=== PATIENT | male | born 1940 | race Caucasian/White ===

== ENCOUNTER → 2018-05-11 | Outpatient (CLI) | payer MEDICARE | END | disposition home or self-care (01) | LOC: RAH 13:13 | PROVIDERS: ATTEND Internal Medicine Critical Care Medicine | DX: R05 Cough (principal) | CPT/HCPCS: 71046 ==

== ENCOUNTER → 2018-05-18 | Outpatient (CLI) | payer MEDICARE | END | disposition home or self-care (01) | LOC: RAH 11:33 | PROVIDERS: ATTEND Internal Medicine Critical Care Medicine | DX: N18.3 Chronic kidney disease, stage 3 (moderate) (principal) | CPT/HCPCS: 76770 ==

== ENCOUNTER → 2018-07-05 | Outpatient (CLI) | payer MEDICARE | END | disposition home or self-care (01) | LOC: RAH 11:13 | PROVIDERS: ATTEND Internal Medicine Nephrology | DX: N18.3 Chronic kidney disease, stage 3 (moderate) (principal) | CPT/HCPCS: 76770 ==

== ENCOUNTER 2019-01-18 13:46 | Emergency (ER) | payer MEDICARE ==
[2019-01-18 14:35] LABS: BASOPHILS % (AUTO) 0.7 % (0.0-5.0); EOSINOPHILS % (AUTO) 0.3 % (0.0-8.0); LYMPHOCYTES % (AUTO) 19.6 % (21.0-51.0); MEAN CORPUSCULAR HGB CONC 34.8 g/dL (32.0-36.0); MEAN CORPUSCULAR VOLUME 92.2 fL (79-99); MONOCYTES % (AUTO) 3.9 % (3.0-13.0); NEUTROPHILS % (AUTO) 75.5 % (40.0-77.0); PLATELET COUNT (AUTO) 177 K/uL (130-400); RED BLOOD CELL COUNT(AUTO) 3.58 MIL/uL (4.50-6.20); RED CELL DISTRIBUTION WIDTH 13.3 % (11.0-15.5); WHITE BLOOD COUNT (AUTO) 8.9 K/uL (4.8-10.8)
[2019-01-18 14:44] LABS: CREATININE 1.5 mg/dL (0.5-1.5); POTASSIUM 3.2 mmol/L (3.5-5.1)
[2019-01-18 14:48] LABS: ALBUMIN 3.2 g/dL (3.5-5.0); BILIRUBIN,TOTAL 0.8 mg/dL (0.2-1.0); INR 1.11 (0.85-1.15); PARTIAL THROMBOPLASTIN TIME 25.4 SEC (26.3-35.5); PROTHROMBIN TIME 11.6 SEC (9.6-11.6); TOTAL PROTEIN, SERUM 6.3 g/dL (6.0-8.3)
== END 2019-01-18 15:32 | disposition home or self-care (01) ==
LOC: EDH 13:46
DX: K62.5 Hemorrhage of anus and rectum (principal); Z87.891 Personal history of nicotine dependence
CPT/HCPCS: 36415; 80053; 85025; 85610; 85730

== ENCOUNTER 2022-07-08 08:36 | Day surgery (SDC) | payer MEDICARE ==
[2022-07-01 13:33] LABS: EOSINOPHILS % (AUTO) 2.1 % (0.0-8.0); LYMPHOCYTES % (AUTO) 22.6 % (21.0-51.0); MEAN CORPUSCULAR HEMOGLOBIN 29.2 pg (27.0-33.0); MEAN CORPUSCULAR HGB CONC 31.8 g/dL (32.0-36.0); MEAN CORPUSCULAR VOLUME 91.9 fL (79-99); MONOCYTES % (AUTO) 6.8 % (3.0-13.0); NEUTROPHILS % (AUTO) 67.4 % (40.0-77.0); PLATELET COUNT (AUTO) 175 K/uL (130-400); RED CELL DISTRIBUTION WIDTH 13.5 % (11.0-15.5); WHITE BLOOD COUNT (AUTO) 7.1 K/uL (4.8-10.8)
[2022-07-01 13:47] LABS: ALBUMIN 3.3 g/dL (3.5-5.0); BILIRUBIN,DIRECT 0.1 mg/dL (0.0-0.3); CREATININE 1.6 mg/dL (0.5-1.5); POTASSIUM 3.6 mmol/L (3.5-5.1); TOTAL PROTEIN, SERUM 6.8 g/dL (6.0-8.3)
[2022-07-01 14:25] VITALS: BP 144/63
[~2022-07-08] VITALS: Ht 170.2 cm; Wt 58.2 kg
[2022-07-08] VITALS (15 sets, daily range): BP systolic 105–147; BP diastolic 55–78
[~2022-07-08 08:36] MED LIST: FINA5TAB41 PO; LISI20TA24 PO; PRIM50TA23 PO; TAMS-1 PO; vitamin b12 IM; vitamin d2 PO
[2022-07-08] MEDS: LACTATED RINGERS 1000ML 1,000 ML IV SCH ×3 (09:13→12:18)
[2022-07-08] MEDS: CEFAZOLIN SODIUM 2 GM VIAL IVPB PRN ×2 (09:13→11:50)
[2022-07-08] MEDS ORDERED: BUPIVACAINE/EPI/PF 0.25% 10ML VIAL IJ ONE ×2 (09:56)
[2022-07-08] MEDS ORDERED: OXYB10TA30 PO (10:25)
[2022-07-08] MEDS ORDERED: ALEN70TA80 PO (10:25)
[2022-07-08] MEDS ORDERED: LIDOCAINE HCL MPF 1% 5ML VIAL ONE (11:37)
[2022-07-08] MEDS ORDERED: FENTANYL CITRATE PF 50 MCG/1 ML 2ML VIAL ONE (11:37)
[2022-07-08] MEDS ORDERED: ONDANSETRON 4MG INJ ONE (11:37)
[2022-07-08] MEDS ORDERED: PROPOFOL 10 MG/ML 20ML VIAL IV ONE (11:37)
== END 2022-07-08 14:20 | disposition home or self-care (01) ==
LOC: DAH 08:36
PROVIDERS: ATTEND Surgery
DX: K61.0 Anal abscess (principal); Z20.822 Contact with and (suspected) exposure to COVID-19; I10 Essential (primary) hypertension; M81.0 Age-related osteoporosis without current pathological fracture; Z90.49 Acquired absence of other specified parts of digestive tract
CPT/HCPCS: 80076; 80048; 85025; 87426; 36415; 93005; 46922; A6260; A4663; A4606; A4452; J7120; J3010; J2704; J2405; J3490 ×3; J0690; A4215; A4223; A4222; A4221; A4600

== ENCOUNTER → 2023-01-25 | Outpatient (CLI) | payer OTHER ==
[~2023-01-25] MED LIST changes: +ALEN70TA80 PO; +OXYB10TA30 PO
== END | disposition home or self-care (01) ==
LOC: RAH 11:52
PROVIDERS: ATTEND Internal Medicine Critical Care Medicine
DX: Z13.6 Encounter for screening for cardiovascular disorders (principal)
CPT/HCPCS: 75571

== ENCOUNTER → 2023-01-25 | Outpatient (CLI) | payer MEDICARE | END | disposition home or self-care (01) | LOC: RAH 10:29 | PROVIDERS: ATTEND Internal Medicine Critical Care Medicine | DX: K80.20 Calculus of gallbladder without cholecystitis without obstruction (principal); N26.1 Atrophy of kidney (terminal) | CPT/HCPCS: 76700 ==

== ENCOUNTER → 2023-08-31 | Outpatient (CLI) | payer MEDICARE | END | disposition home or self-care (01) | LOC: RAH 14:52 | PROVIDERS: ATTEND Internal Medicine Critical Care Medicine | DX: I87.303 Chronic venous hypertension (idiopathic) without complications of bilateral lower extremity (principal) | CPT/HCPCS: 93970 ==

== ENCOUNTER → 2023-12-12 | Outpatient (CLI) | payer MEDICARE | END | disposition home or self-care (01) | LOC: SHCH 10:35 | PROVIDERS: ATTEND Internal Medicine Cardiovascular Disease | DX: I87.2 Venous insufficiency (chronic) (peripheral) (principal) | CPT/HCPCS: 93970 ==